=== PATIENT | male | born 1970 | race Two or more races ===

== ENCOUNTER 2023-11-13 23:40 | Emergency (ER) | payer OTHER ==
[~2023-11-13] VITALS: Ht 170.2 cm; Wt 83.9 kg
[2023-11-14] MEDS ORDERED: AVALIDE 300-121 EACH PO (00:20)
[2023-11-14] MEDS ORDERED: KETO10TA2 PO (02:06)
[2023-11-14] MEDS ORDERED: CEPHALEXIN500 MG PO (02:06)
== END 2023-11-14 02:50 ==
LOC: ER 23:41
DX: S91.341A Puncture wound with foreign body, right foot, initial encounter (principal); W45.0XXA Nail entering through skin, initial encounter; Y93.89 Activity, other specified; Y92.488 Other paved roadways as the place of occurrence of the external cause; Z91.013 Allergy to seafood; I10 Essential (primary) hypertension